=== PATIENT | female | born 1980 | race Caucasian/White ===

== ENCOUNTER → 2016-12-21 12:30 | Outpatient (CLI) | payer MEDICAID ==
[2014-05-22 06:03] VITALS: BMI 31.7
[~2016-12-21 12:30] MED LIST: ALDOMET250 MG PO; CYCLOBENZAPRINE10 MG PO; IBUPROFEN800 MG PO; PERCOCET 10/3251 TA1 PO; PRENATAL COMPLE1 TAB PO; ZITHROMAX250 MG PO
== END | disposition home or self-care (01) ==
LOC: D.RAD 12-18 16:00
DX: K59.00 Constipation, unspecified (principal)

== ENCOUNTER 2017-01-27 02:42 | Emergency (ER) | payer MEDICAID ==
[2014-05-22 06:03] VITALS: BMI 31.7
[2017-01-27 03:15] LABS: BASOPHILS 0.3 % (0.0-2.0); EOSINOPHILS 0.6 % (0-7); HEMATOCRIT 40.4 % (36.0-48.0); HEMOGLOBIN 13.8 g/dL (12-16); IMMATURE GRANULOCYTES 0.2 % (0-5); LYMPHOCYTES 13.9 % (15-50); MCH 32.4 pg (26.0-34.0); MCHC 34.2 g/dL (31.0-37.0); MCV 94.8 fL (80.0-100.0); MEAN PLATELET VOLUME 9.9 fL (7.4-10.4); MONOCYTES 5.3 % (2-11); NEUTROPHILS 79.7 % (40-80); PLATELET COUNT 307 10x3/uL (130-400); RBC 4.26 10x6/uL (4.00-5.40); RDW 13.3 % (11.5-14.5); WBC 13.3 10x3/uL (4.8-10.8)
[2017-01-27 03:27] LABS: ALBUMIN 3.6 g/dL (3.4-5.0); ALKALINE PHOSPHATASE 61 U/L (46-116); ALT (SGPT) 13 U/L (10-68); AMYLASE - SERUM 35 U/L (25-115); BILIRUBIN - TOTAL 0.38 mg/dL (0.2-1.3); CALC OSMOLALITY 275 mosm/kg (275-300); CALCIUM 8.7 mg/dL (8.5-10.1); CARBON DIOXIDE 27.5 mmol/L (21.0-32.0); CHLORIDE - SERUM 104 mmol/L (98-107); CREATININE - SERUM 0.7 mg/dL (0.6-1.3); GLUCOSE 97 mg/dL (74-106); LIPASE 139 U/L (73-393); POTASSIUM - SERUM 3.7 mmol/L (3.5-5.1); PROTEIN - SERUM 7.4 g/dL (6.4-8.2); SODIUM 139 mmol/L (136-145); UREA NITROGEN 7 mg/dL (7-18); eGFR NON AFRICAN AMERICAN > 90 mL/min (90-120)
[2017-01-27 04:33] LABS: APPEARANCE HAZY (CLEAR); BILIRUBIN NEGATIVE (NEGATIVE); COLOR YELLOW (YELLOW); GLUCOSE NEGATIVE (NEGATIVE); KETONE NEGATIVE (NEGATIVE); LEUKOCYTE ESTERASE TRACE (NEGATIVE); NITRITE NEGATIVE (NEGATIVE); PROTEIN NEGATIVE (NEGATIVE); SPECIFIC GRAVITY 1.015 (1.005-1.020); UROBILINOGEN NORMAL (NORMAL)
[2017-01-27 04:35] LABS: BACTERIA FEW /hpf (NONE SEEN); EPITHELIAL CELLS 0-5 /hpf (0-5); RED CELLS - URINE 0-5 /hpf (0-5)
== END 2017-01-27 05:33 | disposition home or self-care (01) ==
LOC: D.ER 02:42
PROVIDERS: Emergency Medicine
DX: R09.1 Pleurisy (principal); I10 Essential (primary) hypertension; F17.200 Nicotine dependence, unspecified, uncomplicated

== ENCOUNTER 2017-02-07 08:56 | Emergency (ER) | payer MEDICAID ==
[2014-05-22 06:03] VITALS: BMI 31.7
[2017-02-07 09:29] LABS: BASOPHILS 0.2 % (0.0-2.0); EOSINOPHILS 0.6 % (0-7); HEMATOCRIT 39.8 % (36.0-48.0); HEMOGLOBIN 13.3 g/dL (12-16); IMMATURE GRANULOCYTES 0.2 % (0-5); LYMPHOCYTES 17.2 % (15-50); MCH 31.8 pg (26.0-34.0); MCHC 33.4 g/dL (31.0-37.0); MCV 95.2 fL (80.0-100.0); MEAN PLATELET VOLUME 9.7 fL (7.4-10.4); MONOCYTES 3.4 % (2-11); NEUTROPHILS 78.4 % (40-80); PLATELET COUNT 334 10x3/uL (130-400); RBC 4.18 10x6/uL (4.00-5.40); RDW 13.5 % (11.5-14.5); WBC 11.7 10x3/uL (4.8-10.8)
[2017-02-07 09:50] LABS: HCG SERUM NEGATIVE (NEGATIVE)
[2017-02-07 09:54] LABS: APTT 29.3 SECONDS (22.8-39.4); INR 0.97 (0.85-1.17); PROTIME 12.7 SECONDS (11.6-15.0)
[2017-02-07 09:55] LABS: ALBUMIN 3.6 g/dL (3.4-5.0); ALKALINE PHOSPHATASE 59 U/L (46-116); ALT (SGPT) 15 U/L (10-68); BILIRUBIN - TOTAL 0.25 mg/dL (0.2-1.3); CALC OSMOLALITY 275 mosm/kg (275-300); CALCIUM 8.5 mg/dL (8.5-10.1); CARBON DIOXIDE 25.8 mmol/L (21.0-32.0); CHLORIDE - SERUM 104 mmol/L (98-107); CREATININE - SERUM 0.7 mg/dL (0.6-1.3); GLUCOSE 91 mg/dL (74-106); POTASSIUM - SERUM 3.9 mmol/L (3.5-5.1); PROTEIN - SERUM 7.2 g/dL (6.4-8.2); SODIUM 138 mmol/L (136-145); UREA NITROGEN 12 mg/dL (7-18); eGFR NON AFRICAN AMERICAN > 90 mL/min (90-120)
== END 2017-02-07 11:12 | disposition home or self-care (01) ==
LOC: D.ER 08:56
PROVIDERS: Family Medicine
DX: N93.8 Other specified abnormal uterine and vaginal bleeding (principal); I10 Essential (primary) hypertension

== ENCOUNTER 2017-04-07 19:10 | Emergency (ER) | payer MEDICAID ==
[2014-05-22 06:03] VITALS: BMI 31.7
== END 2017-04-07 22:00 | disposition home or self-care (01) ==
LOC: D.ER 19:10
DX: M54.5 Low back pain (principal); S39.012A Strain of muscle, fascia and tendon of lower back, initial encounter; X58.XXXA Exposure to other specified factors, initial encounter; Y93.89 Activity, other specified; Y92.89 Other specified places as the place of occurrence of the external cause; M54.30 Sciatica, unspecified side; N93.8 Other specified abnormal uterine and vaginal bleeding; I10 Essential (primary) hypertension

== ENCOUNTER 2017-05-03 05:48 | Day surgery (SDC) | payer MEDICAID ==
[2017-05-01 13:07] LABS: BASOPHILS 0.3 % (0-2); EOSINOPHILS 0.3 % (0-7); HEMATOCRIT 41.1 % (36.0-48.0); HEMOGLOBIN 13.8 g/dL (12-16); IMMATURE GRANULOCYTES 0.3 % (0-5); LYMPHOCYTES 18.1 % (15-50); MCH 31.2 pg (26.0-34.0); MCHC 33.6 g/dL (31.0-37.0); MEAN PLATELET VOLUME 9.9 fL (7.4-10.4); MONOCYTES 4.6 % (2-11); NEUTROPHILS 76.4 % (40-80); PLATELET COUNT 370 10x3/uL (130-400); RBC 4.42 10x6/uL (4.00-5.40); RDW 13.4 % (11.5-14.5); WBC 11.8 10x3/uL (4.8-10.8)
[2017-05-01 13:31] LABS: CALC OSMOLALITY 274 mosm/kg (275-300); CARBON DIOXIDE 22.7 mmol/L (21.0-32.0); CHLORIDE - SERUM 104 mmol/L (98-107); CREATININE - SERUM 0.7 mg/dL (0.6-1.3); GLUCOSE 94 mg/dL (74-106); POTASSIUM - SERUM 3.8 mmol/L (3.5-5.1); SODIUM 138 mmol/L (136-145); UREA NITROGEN 9 mg/dL (7-18); eGFR NON AFRICAN AMERICAN > 90 mL/min (90-120)
[~2017-05-03] VITALS: Ht 152.4 cm; Wt 69.9 kg
--- NOTE | ~2017-05-03 | OP ---
PATIENT NAME: KALLI DASILVA MEDICAL RECORD: [id number] :84 LOCATION:D.OPS ADMISSION DATE: SURGEON: ARIN KENDRICK MD DATE OF OPERATION: 05/03/2017 PREOPERATIVE DIAGNOSES: 1. Menorrhagia. 2. Inadequate endometrial sampling in the office. POSTOPERATIVE DIAGNOSES: 1. Menorrhagia. 2. Inadequate endometrial sampling in the office. PROCEDURES: Hysteroscopy, D&C. SURGEON: Arin Kendrick MD. ESTIMATED BLOOD LOSS: Minimal. INTRAVENOUS FLUIDS: Per anesthesia record. HYSTEROSCOPIC FLUID LOSS: Approximately 150 cc of 0.9 normal saline. FINDINGS: 1. Grossly normal-appearing endometrial cavity. 2. Copious purple blood-tinged mucus noted in the endometrial canal. 3. Grossly normal-appearing external genitalia. COMPLICATIONS: None apparent. SPECIMENS: Endometrial curettings. PROCEDURE IN DETAIL: The patient was taken to the operating room where general anesthesia was achieved without difficulty. The patient was prepped and draped in normal sterile fashion in the dorsal lithotomy position in the [facility]. Following prep and drape, the bladder was drained of approximately 50 cc of clear yellow urine. At this point, a Graves speculum was placed in the vagina and cervix was identified and grasped on its anterior lip with a single-tooth tenaculum. The patient was sounded to approximately 9 cm. At this point, a minimal dilation was performed to approximately 4 mm and the hysteroscope was placed into the cervical canal. A copious purple-appearing mucusy material was noted, which spontaneously evacuated from the uterus/cervix during insufflation of saline. Following removal of the mucusy tissue, it was sent to pathology. Survey of the uterine cavity was performed. Bilateral ostia was identified. A gentle curettage was performed in all 4 quadrants and a sample sent to pathology. The tenaculum was then removed. The patient tolerated the procedure well, transferred to postanesthesia recovery stable without incident. TRANSINT:[id number] Voice Confirmation ID: [id number] DOCUMENT ID: [id number] OPERATIVE REPORT [id number] KALLI DASILVA ARIN KENDRICK MD CC: [id number] DICTATION DATE: 05/10/17 0846 TRAVELING NURSE: 05/10/17 1449 [facility] 05/03/17 [facility] [address] [place] [address]
[~2017-05-03 05:48] MED LIST changes: +ALDACTONE50 MG PO; +ATIVAN1 MG PO; +LEXAPRO20 MG PO; +LISINOPRIL5 MG PO; +OGESTREL; +PERCOCET 7.5/321 TAB PO; +ZOFRAN ODT4 MG/UDTAB PO
[2017-05-03 07:20] VITALS: BP 137/78; Ht 152.4 cm; Wt 69.9 kg
[2017-05-03 07:36] LABS: HCG URINE NEGATIVE (NEGATIVE)
--- NOTE | 2017-05-03 14:08 | NUR ---
1215-PT TO ROOM, TRANSFERRED SELF FROM STRETCHER TO BED WITHOUT DIFFICULTY. VSS. FAMILY AT BEDSIDE. WILL MONITOR. 1245- UP OOB TO BR, VOIDED WITHOUT DIFFICULTY. FULL LIQUIDS TOLERATED. 1255-IV D/C'D, PT TOLERATED. CATHETER INTACT. 1320-DISCHARGE INSTRUCTIONS COMPLETED, PT VERBALIZED UNDERSTANDING. PAPERWORK SIGNED. 1325-PT DISCHARGED VIA WHEELCHAIR WITH FAMILY.
== END 2017-05-03 13:25 | disposition home or self-care (01) ==
LOC: D.OPS 05:48 → D.PAN 10:05 → D.OPS 10:05
PROVIDERS: Obstetrics & Gynecology
DX: N92.0 Excessive and frequent menstruation with regular cycle (principal); F17.200 Nicotine dependence, unspecified, uncomplicated; I10 Essential (primary) hypertension; K21.9 Gastro-esophageal reflux disease without esophagitis

== ENCOUNTER 2017-11-01 00:12 | Emergency (ER) | payer MEDICAID ==
[2017-05-03 07:20] VITALS: BMI 30.1
== END 2017-11-01 01:24 | disposition home or self-care (01) ==
LOC: D.ER 00:12
DX: H60.92 Unspecified otitis externa, left ear (principal); I10 Essential (primary) hypertension; F17.200 Nicotine dependence, unspecified, uncomplicated

== ENCOUNTER 2018-01-04 08:33 | Emergency (ER) | payer MEDICAID ==
[2017-05-03 07:20] VITALS: BMI 30.1
[2018-01-04 09:19] LABS: BASOPHILS 0.1 % (0-2); EOSINOPHILS 0.3 % (0-7); HEMATOCRIT 41.6 % (36.0-48.0); HEMOGLOBIN 14.4 g/dL (12-16); IMMATURE GRANULOCYTES 0.3 % (0-5); LYMPHOCYTES 14.6 % (15-50); MCH 32.1 pg (26.0-34.0); MCHC 34.6 g/dL (31.0-37.0); MCV 92.7 fL (80.0-100.0); MEAN PLATELET VOLUME 9.8 fL (7.4-10.4); MONOCYTES 9.8 % (2-11); NEUTROPHILS 74.9 % (40-80); RBC 4.49 10x6/uL (4.00-5.40); RDW 13.1 % (11.5-14.5); WBC 9.4 10x3/uL (4.8-10.8)
[2018-01-04 09:32] LABS: PLATELET COUNT 290 10x3/uL (130-400)
[2018-01-04 09:38] LABS: HCG SERUM NEGATIVE (NEGATIVE)
[2018-01-04 11:26] LABS: APPEARANCE HAZY (CLEAR); BACTERIA MODERATE /hpf (NONE SEEN); BILIRUBIN NEGATIVE (NEGATIVE); COLOR YELLOW (YELLOW); EPITHELIAL CELLS 0-5 /hpf (0-5); GLUCOSE NEGATIVE (NEGATIVE); KETONE NEGATIVE (NEGATIVE); MUCUS >1+ /lpf (NONE SEEN); NITRITE NEGATIVE (NEGATIVE); PROTEIN NEGATIVE (NEGATIVE); SPECIFIC GRAVITY 1.015 (1.005-1.020); UROBILINOGEN NORMAL (NORMAL); WHITE CELLS - URINE OCC /hpf (0-5)
== END 2018-01-04 13:10 | disposition home or self-care (01) ==
LOC: D.ER 08:33
PROVIDERS: Emergency Medicine; Nurse Practitioner Family
DX: N76.0 Acute vaginitis (principal); B96.89 Other specified bacterial agents as the cause of diseases classified elsewhere; N93.9 Abnormal uterine and vaginal bleeding, unspecified; I10 Essential (primary) hypertension

== ENCOUNTER 2019-10-05 16:37 | Emergency (ER) | payer MEDICAID ==
[~2019-10-05] VITALS: Ht 152.4 cm; Wt 81.8 kg
[2019-10-05 16:41] VITALS: Ht 152.4 cm; Wt 81.8 kg
[2019-10-05 20:20] VITALS: BP 165/104
== END 2019-10-05 20:20 | disposition home or self-care (01) ==
LOC: D.ER 16:37
DX: S52.532A Colles' fracture of left radius, initial encounter for closed fracture (principal); S52.615A Nondisplaced fracture of left ulna styloid process, initial encounter for closed fracture; I10 Essential (primary) hypertension; Z72.0 Tobacco use

== ENCOUNTER 2020-09-13 05:15 | Day surgery (SDC) | payer MEDICAID ==
--- NOTE | 2020-09-10 09:39 | HP ---
PATIENT: KALLI DASILVA MEDICAL RECORD: [id number] ACCOUNT: [id number] LOCATION:[facility] : 84 ADMISSION DATE: 09/13/20 PCP: APRIL YAO APRN HISTORY AND PHYSICAL EXAMINATION HISTORY: Ms. Dasilva is 40-year-old female. She has had problems with severe nasal obstruction for years, but now she is on CPAP, unable to use it because of the nasal obstruction. She has been refractory for a long time to aggressive medical management. PAST MEDICAL HISTORY: Includes hypertension, reflux, seasonal allergies. PAST SURGICAL HISTORY: Includes back surgery in 2017 and times 2. CURRENT MEDICATIONS: Lisinopril, control, trillinex, [place] 10, and medication for reflux that she does not know. ALLERGIES: No known drug allergies. PHYSICAL EXAMINATION: GENERAL: She is healthy-appearing and developmentally normal. She is overweight. FACE: Normal, symmetric, no lesions. EYES: Sclerae and conjunctivae are normal. EARS: Canals and TMs are normal. NOSE: Severe right septal deviation, large inferior turbinates. No masses, polyps, or drainage. ORAL CAVITY AND OROPHARYNX: Average palate not particularly low, quite small tonsils. Small uvula. NECK: No masses, no adenopathy. CHEST: Clear. CARDIOVASCULAR: Regular rate and rhythm, no murmur. EXTREMITIES: Normal. IMPRESSION: Nasal obstruction, septal deviation, turbinate hypertrophy, sleep apnea, has been refractory to medical management. PLAN: Septoplasty and bilateral inferior turbinate reduction. TRANSINT:[id number] Voice Confirmation ID: [id number] DOCUMENT ID: [id number] ERNESTO CRANE MD at 0939 CC: [id number] DICTATION DATE: 09/09/20 1354 SYSTEM OPERATION SUPERINTENDENT: 09/09/20 1421 [facility] [address] [place] [address]
[~2020-09-13] VITALS: Ht 152.4 cm; Wt 81.6 kg
--- NOTE | ~2020-09-13 | OP ---
PATIENT NAME: KALLI DASILVA MEDICAL RECORD: [id number] :84 LOCATION:D.[facility] ADMISSION DATE: SURGEON: ERNESTO STONE MD DATE OF OPERATION: 09/13/2020 PREOPERATIVE DIAGNOSES: Nasal obstruction, septal deviation, and turbinate hypertrophy. POSTOPERATIVE DIAGNOSES: Nasal obstruction, septal deviation, and turbinate hypertrophy. PROCEDURES: Septoplasty and bilateral inferior turbinate reduction. SURGEON: Ernesto Stone MD ANESTHESIA: General orotracheal. BLOOD LOSS: Less than 5 cc. SPECIMENS: None. PACKING: Mckeon splints bilaterally. COMPLICATIONS: None. DISPOSITION: Recovery stable. DESCRIPTION OF PROCEDURE: She was brought to the operating room and placed in supine position, sedated and intubated by anesthesia. The eyes were taped. Table was turned 90 degrees. Head drape was applied and she was positioned, prepped and draped for a nasal surgery. She had already been decongested with Afrin. Both sides of the septum, floor of the nose and inferior turbinates were injected with a total of 1.5 cc of 1% lidocaine with 1:100,000 epinephrine. Three Afrin pledgets were placed in each side. After waiting for decongestion, all the Afrin pledgets were removed a right-sided [place] incision was made. Ipsilateral mucoperichondrial flap was elevated. Bony spur on the right side was isolated and removed with a chisel. Relaxing incisions were made in the cartilage. This allowed the anterior septum to fall back to the midline. Posterior septum was straight. Both inferior turbinates were medialized with a freer. A [place] was used to take down the inferior redundant portion of the turbinate. Suction cautery was used to stop any bleeding and both outfractured with a [place] elevator. The Andrew incision was closed with interrupted 4-0 chromic. Nasopharynx was suctioned. The field clean and dry. Good airway on both sides, symmetric. Mckeon splints were placed bilaterally with some mupirocin ointment and sutured through the anterior membranous septum with a 2-0 Prolene on a Kip needle. She was awakened, extubated, and transported to recovery in good condition. No complications. TRANSINT:[id number] Voice Confirmation ID: [id number] DOCUMENT ID: [id number] OPERATIVE REPORT [id number] KALLI DASILVA ERIC MD CC: [id number] DICTATION DATE: 09/13/2059 FABRICATION LEAD: 09/13/20 1309 [facility] [place] [id number] [place] [id number]
[~2020-09-13 05:15] MED LIST changes: +HYDROCODON-ACE1 EA10 PO; +OMEPRAZOLE20 M1 PO; +TRINTELLIX20 MG PO
[2020-09-13 05:41] LABS: HEMATOCRIT 44.2 % (36.0-48.0); HEMOGLOBIN 14.7 g/dL (12-16); MCH 29.9 pg (26.0-34.0); MCHC 33.3 g/dL (31.0-37.0); MEAN PLATELET VOLUME 9.6 fL (7.4-10.4); RBC 4.91 10x6/uL (4.00-5.40); RDW 13.5 % (11.5-14.5); WBC 11.3 10x3/uL (4.8-10.8)
[2020-09-13 06:43] VITALS: BP 117/69; Ht 152.4 cm; Wt 81.6 kg
[2020-09-13 06:53] LABS: HCG URINE NEGATIVE (NEGATIVE)
== END 2020-09-13 10:40 | disposition home or self-care (01) ==
LOC: D.OPS 05:15
PROVIDERS: Anesthesiology; ATTEND Otolaryngology
DX: J34.89 Other specified disorders of nose and nasal sinuses (principal); J34.2 Deviated nasal septum; J34.3 Hypertrophy of nasal turbinates; I10 Essential (primary) hypertension; K21.9 Gastro-esophageal reflux disease without esophagitis